=== PATIENT | male | born 1935 | race Two or more races ===

== ENCOUNTER 2020-11-18 09:44 | Outpatient (CLI) | payer OTHER ==
[~2020-11-18 09:44] MED LIST: CRESTOR40 MG PO; JANUMET 50-1,1 UDTAB PO; MICARDIS HCT1 UDTA2 PO; NEURONTIN300 MG PO; PLAVIX75 MG PO; SYNTHROID50 MCG PO
== END 2020-11-18 09:55 | disposition home or self-care (01) ==
LOC: TOM 09:44
PROVIDERS: ATTEND Colon & Rectal Surgery
DX: D64.89 Other specified anemias (principal); K63.5 Polyp of colon